=== PATIENT | female | born 1990 | race Hispanic/Latino ===

== ENCOUNTER 2022-03-16 12:53 | Emergency (ER) | payer OTHER ==
[~2022-03-16] VITALS: Ht 170.2 cm; Wt 108.9 kg
[2022-03-16] MEDS ORDERED: IBUPROFEN 800 MG TAB PO ONE (13:00)
[2022-03-16] MEDS ORDERED: NAPR-1180 PO (13:20)
[2022-03-16 13:29] VITALS: BP 132/78
== END 2022-03-16 13:31 | disposition home or self-care (01) ==
LOC: EDH 12:53
DX: S60.222A Contusion of left hand, initial encounter (principal); S60.417A Abrasion of left little finger, initial encounter; W18.39XA Other fall on same level, initial encounter; Y93.89 Activity, other specified; Y92.89 Other specified places as the place of occurrence of the external cause; Y99.8 Other external cause status
CPT/HCPCS: 73130